=== PATIENT | male | born 1950 | race Caucasian/White ===

== ENCOUNTER → 2016-06-15 | Day surgery (SDC) | payer MEDICARE, OTHER ==
[~2016-06-15] VITALS: Ht 185.4 cm; Wt 77.0 kg
[~2016-06-15] MED LIST: ALTACE2.5 MG PO; AMINO ACID PO; ASPIRIN LO-DOSE81 MG PO; B COMPLEX1 EACH PO; COLACE100 MG PO; COREG 3.1253.125 MG PO; LIPITOR20 M1 PO; MULTI VITAMIN1 EACH PO; NIACIN250 M1 PO; NORCO 10-325 T1 EACH PO; NORCO 5-325 MG1 TAB PO; PLAVIX75 MG PO; VITAMIN C1000 MG PO; ZOLOFT100 MG PO
== END | disposition disaster alternative care site (69) ==
LOC: GPOC 06-10 09:00 → GEND 07:00 → GPOC 07:00 → EDSTATUS 07:00
PROC: 0FC98ZZ Extirpation of Matter from Common Bile Duct, Via Natural or Artificial Opening Endoscopic (ICD-10-PCS; principal; 2016-06-15)
PROC: 0FPB8DZ Removal of Intraluminal Device from Hepatobiliary Duct, Via Natural or Artificial Opening Endoscopic (ICD-10-PCS; 2016-06-15)
DX: Z46.59 Encounter for fitting and adjustment of other gastrointestinal appliance and device (principal); E78.00 Pure hypercholesterolemia, unspecified; I25.10 Atherosclerotic heart disease of native coronary artery without angina pectoris; F41.9 Anxiety disorder, unspecified; Z90.49 Acquired absence of other specified parts of digestive tract; Z98.890 Other specified postprocedural states
CPT/HCPCS: J0690; J1100; J2001; J2405; J3010; J7030